=== PATIENT | male | born 1945 | race Two or more races ===

== ENCOUNTER 2019-08-29 01:35 | Emergency (ER) | payer OTHER ==
[~2019-08-29] VITALS: Ht 175.3 cm; Wt 70.3 kg
[2019-08-29 12:33] VITALS: BP 128/62
== END 2019-08-29 12:34 | disposition home or self-care (01) ==
LOC: EDBD 01:35 → ER 01:39
DX: S70.01XA Contusion of right hip, initial encounter (principal); S00.01XA Abrasion of scalp, initial encounter; M47.812 Spondylosis without myelopathy or radiculopathy, cervical region; R51 Headache; W07.XXXA Fall from chair, initial encounter; Y93.89 Activity, other specified; Y92.89 Other specified places as the place of occurrence of the external cause; Y99.8 Other external cause status
CPT/HCPCS: 70450; 71250; 72125; 72192

== ENCOUNTER 2023-10-14 09:21 | Emergency (ER) | payer MEDICARE, OTHER ==
[~2023-10-14] VITALS: Ht 177.8 cm; Wt 52.0 kg
[2023-10-14 11:47] VITALS: BP 173/99; PULSE 90; RESP 16; TEMP 99.9; O2SAT 99
[2023-10-14] MEDS: LIDOCAINE 1% HCL (LOCAL ANESTH.) INJ 20ML MDV ID ONE (12:07)
[2023-10-14] MEDS ORDERED: CEPH500C PO (12:18)
== END 2023-10-14 12:22 | disposition home or self-care (01) ==
LOC: ER 09:26
DX: L02.413 Cutaneous abscess of right upper limb (principal); F17.210 Nicotine dependence, cigarettes, uncomplicated; F15.90 Other stimulant use, unspecified, uncomplicated
CPT/HCPCS: 10060; J2001